=== PATIENT | male | born 1965 | race African-American/Black ===

== ENCOUNTER 2017-10-25 23:13 | Emergency (ER) | payer OTHER ==
[~2017-10-25] VITALS: Ht 188 cm; Wt 107.5 kg
[~2017-10-25 23:13] MED LIST: CIPRO500 M1 PO; METRONIDAZOLE500 M1 PO; PERCOCET 5-3251 EACH PO
--- NOTE | 2017-10-25 23:19 | ED GENERAL ADULT ---
History of Present Illness General Chief Complaint: General Adult Stated Complaint: HIGH BLOOD PRESSURE AND DIFF BREATHING Source: patient Exam Limitations: no limitations Vital Signs & Intake/Output Vital Signs & Intake/Output Vital Signs Date Time Temp Pulse Resp B/P B/P Pulse O2 O2 Flow FiO2 Mean Ox Delivery Rate 10/26 0151 83 20 170/98 98 Room Air 10/26 0109 98.2 82 20 164/97 95 Room Air 10/26 0029 180/100 10/25 2334 95 Room Air 10/25 2332 98.6 93 20 182/100 95 Room Air ED Intake and Output 10/26 0000 10/25 1200 Intake Total Output Total Balance Patient 237 lb Weight Weight Reported by Patient Measurement Method Allergies Coded Allergies: NO KNOWN ALLERGIES (06/07/12) Reconcile Medications Amlodipine Besylate 10 MG TABLET 1 TAB PO DAILY HIGH BLOOD PRESSURE (Reported ) Ciprofloxacin HCl (Cipro) 500 MG TABLET 1 TAB PO BID diverticulitis Labetalol HCl 200 MG TABLET 1 TAB PO BID HIGH BLOOD PRESSURE (Reported) Loratadine (Claritin) 10 MG TABLET 1 TAB PO DAILY NASAL CONGESTION LORazepam (Ativan) 1 MG TAB 1 TAB PO BID PRN anxiety six...[id number] Metronidazole 500 MG TABLET 1 TAB PO TID diverticulitis Oxycodone HCl/Acetaminophen (Percocet 5-325 MG Tablet) 1 EACH TABLET 1 TAB PO Q6H PRN PAIN Oxymetazoline HCl (Afrin) 0.05 % SPRAY 1 SPRAY IN BID PRN NASAL CONGESTION Triage Nurses Notes Reviewed? yes Onset: Gradual Duration: hour(s): Timing: recent history Injury Environment: home Severity: moderate Modifying Factors: Improves With: rest. Associated Symptoms: DYSPNEA HPI: 52 yo gentleman h/o htn, presents with difficulty breathing and elevated blood pressure. He notes that he had right nasal congestion, "and then I think I had a panic attack... I had to drive around and calm down... and then I checked my blood pressure... it was 180's... and that made me even more nervous... I couldn't catch my breath." He notes that he is tolerating his meds. He took flonase this evening, but no decongestants. She denies chest pain, shortness of breath, chills, dyspnea. He is otherwise well. Past History Travel History Traveled to [place] past 21 day No Medical History Any Pertinent Medical History? 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 No Review of Systems Review of Systems Constitutional: Reports: no symptoms. EENTM: Reports: no symptoms. Respiratory: Reports: no symptoms. Cardiovascular: Reports: no symptoms. GI: Reports: no symptoms. Genitourinary: Reports: no symptoms. Musculoskeletal: Reports: no symptoms. Skin: Reports: no symptoms. Neurological/Psychological: Reports: no symptoms. Hematologic/Endocrine: Reports: no symptoms. Immunologic/Allergic: Reports: no symptoms. All Other Systems: Reviewed and Negative Physical Exam Physical Exam General Appearance: well developed/nourished, no apparent distress, alert, anxious Comments: Review of Systems - except as otherwise noted in HPI Physical Exam Physical Exam General Appearance: well developed/nourished, no apparent distress Head: atraumatic, normal appearance Eyes: Bilateral: normal appearance. Ears, Nose, Throat: normal pharynx, right nare with mild erythema, no sinus tenderness to palpation. Neck: normal inspection, supple, full range of motion Respiratory: normal breath sounds, chest non-tender, no respiratory distress, quiet respiration, lungs clear Cardiovascular: regular rate/rhythm Gastrointestinal: normal bowel sounds, soft, non-tender, no organomegaly Back: normal inspection, normal range of motion Extremities: normal inspection, normal capillary refill, normal range of motion, no edema Neurologic/Psych: no motor/sensory deficits, awake, alert, oriented x 3 Skin: intact, normal color, warm/dry Core Measures ACS in differential dx? No CVA/TIA Diagnosis: No Sepsis Present: No Sepsis Focused Exam Completed? No Progress Differential Diagnoses I considered the following diagnoses in my evaluation of the patient: htn, panic, anxiety, chf, mi, acs vs other. Plan of Care: Orders Procedure Date/time Status B-TYPE NATRIURETIC PEP (BNP) 10/26 2327 Complete TROPONIN LEVEL 10/25 2318 Complete LIPASE 10/25 2318 Complete HEPATIC FUNCTION PANEL 10/25 2318 Complete D-DIMER 10/25 2318 Complete CBC WITHOUT DIFFERENTIAL 10/25 2318 Complete BASIC METABOLIC PANEL 10/25 2318 Complete AMYLASE 10/25 2318 Complete EKG 10/25 2318 Active Laboratory Tests 10/25/172355: Xsx-B-Iutnxsumbdv Pept 67.0 10/25/172355: Anion Gap 14, Estimated GFR > 60, BUN/Creatinine Ratio 18.0, Glucose 145 H, Calcium 9.6, Total Bilirubin 0.6, Direct Bilirubin 0.3, AST 43, ALT 63, Alkaline Phosphatase 78, Troponin I < 0.01, Total Protein 7.9, Albumin 4.8, Amylase 56, Lipase 189, D-Dimer High Sensitivty < 200, CBC w Diff NO MAN DIFF REQ, RBC 4.55 L, MCV 88.8, MCH 29.6, MCHC 33.3, RDW 12.6, MPV 9.1, Gran % 61.2, Lymphocytes % 22.4, Monocytes % 6.2, Eosinophils % 9.4 H, Basophils % 0.8, Absolute Granulocytes 4.2, Absolute Lymphocytes 1.5, Absolute Monocytes 0.4, Absolute Eosinophils 0.6, Absolute Basophils 0.1 Diagnostic Imaging: Viewed by Me: Radiology Read. Discussed w/RAD: Radiology Read. CXR Impression: PATIENT: DAMEON ENGLAND PRESENT AGE: 52 PATIENT ACCOUNT NO: [id number] : 64 LOCATION: [facility] ORDERING PHYSICIAN: Reginald Morales MD SERVICE DATE: 10/25/17 EXAM TYPE: RAD - XRY-PORTABLE CHEST XRAY EXAMINATION: CHEST 1 VIEW CLINICAL INFORMATION: Chest pain. COMPARISON: None. TECHNIQUE: An AP view of the chest is provided. FINDINGS: The cardiac silhouette is not enlarged. The mediastinal and hilar contours are unremarkable. There are neither pleural effusions nor pneumothoraces. There are no consolidations. The osseous structures are unremarkable. IMPRESSION: No evidence for acute disease. DICTATED BY: Torito Gomez MD DATE/TIME DICTATED:10/26/1723 TRANSCRIPTION SPECIALIST:MAKENZIE DATE/TIME TRANSCRIBED:10/26/1723 CONFIDENTIAL, DO NOT COPY WITHOUT APPROPRIATE AUTHORIZATION. <Electronically signed in Other Vendor System> SIGNED BY: Torito Gomez MD 10/26/1727 Initial ED EKG: normal axis, normal intervals, normal p-waves, normal QRS complex, normal sinus rhythm Departure Departure Disposition: HOME OR SELF CARE Condition: Stable Clinical Impression Primary Impression: Dyspnea Secondary Impressions: Hypertension Referrals: Gabriela HERNANDEZ,Angel Howe (PCP/Family) Departure Forms: Customer Survey General Discharge Information Prescriptions: Current Visit Scripts Oxymetazoline HCl (Afrin) 1 SPRAY IN BID PRN NASAL CONGESTION #1 SPRAY Loratadine (Claritin) 1 TAB PO DAILY #30 TAB LORazepam (Ativan) 1 TAB PO BID PRN anxiety #6 TAB six...[id number] Comments 10/26/17, 1:41AM... discussed at lengthwith patient... labs benign... he notes the major issues is his right nasal congestion, without fever or significant discharge... discussed at length... pt given rx for claritin and afrin, and will continue flonase bid.... no chest pain, trop/dimer benign... pt safe for discharge with close follow up. Critical Care Note Critical Care Note Critical Care Time: non-applicable
[2017-10-26] MEDS ORDERED: AMLODIPINE BESY10 M1 PO (00:02)
[2017-10-26] MEDS ORDERED: LABETALOL HCL200 M1 PO (00:03)
--- NOTE | 2017-10-26 00:28 | RADIOLOGY REPORT ---
EXAMINATION: CHEST 1 VIEW CLINICAL INFORMATION: Chest pain. COMPARISON: None. TECHNIQUE: An AP view of the chest is provided. FINDINGS: The cardiac silhouette is not enlarged. The mediastinal and hilar contours are unremarkable. There are neither pleural effusions nor pneumothoraces. There are no consolidations. The osseous structures are unremarkable. IMPRESSION: No evidence for acute disease.
[2017-10-26 00:30] LABS: ABSOLUTE BASOPHIL COUNT 0.1 /CUMM (0.0-0.2); ABSOLUTE EOSINOPHIL COUNT 0.6 /CUMM (0.0-0.7); ABSOLUTE GRANULOCYTE CT 4.2 /CUMM (1.4-6.5); ABSOLUTE LYMPH COUNT 1.5 /CUMM (1.2-3.4); ABSOLUTE MONOCYTE COUNT 0.4 /CUMM (0.10-0.60); BASOPHIL % 0.8 % (0.0-2.0); EOSINOPHIL % 9.4 % (0-5); GRANULOCYTE % 61.2 % (42.2-75.2); HEMATOCRIT 40.4 % (42-52); MEAN CORPUSCULAR HGB 29.6 PG (27.0-31.0); MEAN CORPUSCULAR HGB CONC 33.3 G/DL (33.0-37.0); MEAN CORPUSCULAR VOLUME 88.8 FL (80.0-94.0); MEAN PLATELET VOLUME 9.1 FL (7.4-10.4); PLATELET COUNT 264 /CUMM (130-400); RBC DISTRIBUTION WIDTH 12.6 % (11.5-14.5); RED BLOOD CELL CT 4.55 /CUMM (4.70-6.10); WHITE BLOOD CELL COUNT 6.9 /CUMM (4.8-10.8)
[2017-10-26] MEDS ORDERED: CLARITIN10 M1 PO (01:39)
[2017-10-26] MEDS ORDERED: AFRIN30 ML IN (01:39)
[2017-10-26] MEDS ORDERED: ATIVAN1 M1 PO ×3 (01:42→02:19)
[2017-10-26 01:51] VITALS: BP 170/98
== END 2017-10-26 01:51 ==
LOC: ERH 23:13
PROVIDERS: Pediatrics
DX: R06.00 Dyspnea, unspecified (principal); I10 Essential (primary) hypertension
CPT/HCPCS: 71045; 93005; 93010